=== PATIENT | female | born 1995 | race Caucasian/White ===

== ENCOUNTER 2018-03-15 14:29 | Outpatient (CLI) | payer MEDICAID ==
[2018-03-15 15:40] LABS: APPEARANCE,URINE SLIGHTLY-CLOUDY; BILIRUBIN,URINE NEGATIVE (NEGATIVE); COLOR,URINE YELLOW; GLUCOSE, URINE NEGATIVE (NEGATIVE); KETONES,URINE NEGATIVE (NEGATIVE); LEUKOCYTE ESTERASE,URINE LARGE (NEGATIVE); NITRITE,URINE NEGATIVE (NEGATIVE); PROTEIN,URINE NEGATIVE (NEGATIVE); URINE SPECIFIC GRAVITY 1.011; UROBILINOGEN,URINE NEGATIVE mg/dL (<2.0)
[2018-03-15 15:56] LABS: URINE AMPHETAMINES SCREEN NEGATIVE; URINE BARBITURATES SCREEN NEGATIVE; URINE BENZODIAZEPINES SCREEN NEGATIVE; URINE COCAINE SCREEN NEGATIVE; URINE MARIJUANA (THC) SCREEN NEGATIVE; URINE METHADONE SCREEN NEGATIVE; URINE PHENCYCLIDINE SCREEN NEGATIVE
--- NOTE | 2018-03-15 16:10 | Non Stress Test Report ---
Non Stress Test Datetime Report Generated by CPN: 03/15/2018 16:09 DEMOGRAPHIC EGA NST: 39.1 EGA NST: 39.1 INDICATION Indication for Study: Ordered by Provider Indication for Study: Ordered by Provider MONITORING Monitor Explained: Monitor Explained; Test Explained; Patient Verbalized Understanding Monitor Explained: Monitor Explained; Test Explained; Patient Verbalized Understanding Time on Monitor: 03/15/2018 14:58 Time on Monitor: 03/15/2018 14:58 Time off Monitor: 03/15/2018 15:50 Time off Monitor: 03/15/2018 15:50 NST Duration: 52 NST Duration: 52 NST INTERVENTIONS NST Interventions: PO Hydration; Reposition Patient NST Interventions: PO Hydration; Reposition Patient Physician Notified NST: Quoc Ruelas, CNM BABY A: [id number] BABY A Movement : Present Contraction Frequency : x1 FHR Baseline : 140 Accelerations : 15X15 Decelerations : None Variability : Moderate 6-25bpm NST Review: Meets Criteria for Reactive NST NST Review and Verified By : yris romo, RN NST Results: Reactive NST REPORT Report Trigger: Send Report
== END 2018-03-15 16:02 | disposition home or self-care (01) ==
LOC: LC 14:29
PROVIDERS: ATTEND Obstetrics & Gynecology
PROC: 4A1HXCZ Monitoring of Products of Conception, Cardiac Rate, External Approach (ICD-10-PCS; principal; 2018-03-15)
DX: O47.1 False labor at or after 37 completed weeks of gestation (principal); Z3A.39 39 weeks gestation of pregnancy
CPT/HCPCS: 59025; 80307; 81005

== ENCOUNTER 2018-03-21 12:33 | Outpatient (CLI) | payer MEDICAID ==
[2018-03-21 13:18] LABS: APPEARANCE,URINE SLIGHTLY-CLOUDY; BILIRUBIN,URINE NEGATIVE (NEGATIVE); COLOR,URINE YELLOW; GLUCOSE, URINE NEGATIVE (NEGATIVE); KETONES,URINE NEGATIVE (NEGATIVE); LEUKOCYTE ESTERASE,URINE TRACE (NEGATIVE); NITRITE,URINE NEGATIVE (NEGATIVE); PROTEIN,URINE NEGATIVE (NEGATIVE); URINE SPECIFIC GRAVITY 1.017; UROBILINOGEN,URINE NEGATIVE mg/dL (<2.0)
--- NOTE | 2018-03-21 13:21 | Non Stress Test Report ---
Non Stress Test Datetime Report Generated by CPN: 03/21/2018 13:21 DEMOGRAPHIC EGA NST: 40.0 MONITORING Monitor Explained: Monitor Explained; Test Explained; Patient Verbalized Understanding Time on Monitor: 03/21/2018 12:53 Time off Monitor: 03/21/2018 13:18 NST Duration: 25 NST INTERVENTIONS NST Interventions: PO Hydration Physician Notified NST: Ruelas, CNM BABY A: [id number] BABY A Movement : Present Contraction Frequency : 10 FHR Baseline : 130 Accelerations : 15X15 Decelerations : None Variability : Moderate 6-25bpm NST Review: Meets Criteria for Reactive NST NST Review and Verified By : HAILEYUND, RN NST Results: Reactive NST REPORT Report Trigger: Send Report
[2018-03-21 13:34] LABS: URINE AMPHETAMINES SCREEN NEGATIVE; URINE BARBITURATES SCREEN NEGATIVE; URINE BENZODIAZEPINES SCREEN NEGATIVE; URINE COCAINE SCREEN NEGATIVE; URINE MARIJUANA (THC) SCREEN NEGATIVE; URINE METHADONE SCREEN NEGATIVE; URINE PHENCYCLIDINE SCREEN NEGATIVE
== END 2018-03-21 13:24 | disposition home or self-care (01) ==
LOC: LC 12:33
PROVIDERS: ATTEND Obstetrics & Gynecology
PROC: 4A1HXCZ Monitoring of Products of Conception, Cardiac Rate, External Approach (ICD-10-PCS; principal; 2018-03-21)
DX: O47.1 False labor at or after 37 completed weeks of gestation (principal); Z3A.40 40 weeks gestation of pregnancy
CPT/HCPCS: 59025; 80307; 81005

== ENCOUNTER 2018-03-24 06:30 | Inpatient (IN) | payer MEDICAID ==
[2018-03-24] MEDS ORDERED: OXYTOCIN/NORMAL SALINE 20 UNIT/1,000 ML RTUINJ IV PRN ×2 (06:43→19:30)
[2018-03-24] MEDS ORDERED: RINGERS SOLUTION,LACTATED 300 ML IV ONE (06:43)
[2018-03-24] MEDS ORDERED: RINGERS SOLUTION,LACTATED 1,000 ML IV PRN (06:43)
[2018-03-24] MEDS ORDERED: PENICILLIN G POTASSIUM 5,000,000 UNIT in DEXTROSE 5%-WATER 100 ML IV ONE (06:44)
[2018-03-24 07:21] LABS: ABSOLUTE LYMPHOCYTES (AUTO) 1.4 10^3/uL (0.5-4.7); ABSOLUTE MONOCYTES (AUTO) 0.4 10^3/uL (0.1-1.4); ABSOLUTE NEUT (AUTO) 3.6 10^3/uL (1.7-8.2); BASOPHILS % (AUTO) 0.7 % (0-2); EOSINOPHILS % (AUTO) 0.2 % (0-6); HEMATOCRIT 27.6 % (36.0-47.0); HEMOGLOBIN 9.8 g/dL (12.0-15.5); LYMPHOCYTES % (AUTO) 26.1 % (13-45); MEAN CORPUSCULAR HEMOGLOBIN 28.6 pg (27.0-33.4); MEAN CORPUSCULAR HGB CONC 35.3 g/dL (32.0-36.0); MEAN CORPUSCULAR VOLUME 81 fl (80-97); MONOCYTES % (AUTO) 7.4 % (3-13); PLATELET COUNT 153 10^3/uL (150-450); RED BLOOD COUNT 3.41 10^6/uL (3.72-5.28); RED CELL DISTRIBUTION WIDTH 13.5 % (11.5-14.0); SEGMENTED NEUTROPHILS % (AUTO) 65.6 % (42-78); TOTAL CELLS COUNTED % (AUTO) 100 %; WHITE BLOOD COUNT 5.5 10^3/uL (4.0-10.5)
[2018-03-24 07:26] LABS: APPEARANCE,URINE CLOUDY; BILIRUBIN,URINE NEGATIVE (NEGATIVE); COLOR,URINE YELLOW; GLUCOSE, URINE NEGATIVE (NEGATIVE); KETONES,URINE NEGATIVE (NEGATIVE); LEUKOCYTE ESTERASE,URINE LARGE (NEGATIVE); NITRITE,URINE NEGATIVE (NEGATIVE); PROTEIN,URINE NEGATIVE (NEGATIVE); URINE SPECIFIC GRAVITY 1.015; UROBILINOGEN,URINE NEGATIVE mg/dL (<2.0)
[2018-03-24 07:45] LABS: URINE AMPHETAMINES SCREEN NEGATIVE; URINE BARBITURATES SCREEN NEGATIVE; URINE BENZODIAZEPINES SCREEN NEGATIVE; URINE COCAINE SCREEN NEGATIVE; URINE MARIJUANA (THC) SCREEN NEGATIVE; URINE METHADONE SCREEN NEGATIVE; URINE PHENCYCLIDINE SCREEN NEGATIVE
[2018-03-24] MEDS ORDERED: PENICILLIN G-K 5 MILLION UNIT VIAL ONE ×3 (08:08→18:14)
[2018-03-24] MEDS ORDERED: MISOPROSTOL 0.2 MG TABLET ONE (08:08)
[2018-03-24] MEDS ORDERED: OXYTOCIN/NORMAL SALINE 20 UNIT/1,000 ML RTUINJ ONE (08:08)
[2018-03-24] MEDS ORDERED: LIDOCAINE 1% INJ-PF (10 MG/ML) 30 ML SDV ONE (08:08)
[2018-03-24 08:23] LABS: RUBELLA INTERPRETATION POSITIVE
[2018-03-24 08:57] LABS: CHLAM PCR NOT DETECTED (NOT DETECT); GON PCR NOT DETECTED (NOT DETECT)
[2018-03-24] MEDS ORDERED: DINOPROSTONE 10 MG VAGINAL INSERT.SR ONE (10:48)
--- NOTE | 2018-03-24 11:53 | Admission Physical ---
Datetime Report Generated by CPN: 03/24/2018 11:53 CURRENT ADMISSION Hx Assessment: The History has been Updated Chief Complaint: Scheduled Induction of Labor Indication for Induction: Post Dates Indication for Induction- Other: LAURITA 5.7 Admit Impression : Term, Intrauterine Admit Plan: Admit to Unit; Initiate Labor Induction Protocol ALLERGIES Medication Allergies: No Medication Allergies: orange (03/24/2018) Latex: Unknown Food Allergies: sour cream and oranges Environmental Allergies: n/a OBSTETRICAL HISTORY EDC: 03/21/2018 00:00 : 2 Para: 0 Term: 0 : 0 SAB: 1 IAB: 0 Livin Gestational Diabetes: No Rh Sensitization: No Incompetent Cervix: No MARBELLA: No Infertility: No ART Treatment: No Uterine Anomaly: No IUGR: No Hx Previous C/S: No Macrosomia: No Hx Loss/Stillborn: No PIH: No Hx : No Placenta Previa/Abruption: No Depression/PP Depression: No PTL/PROM: No Post Hemorrhage: No Current Procedures: Ultrasound Obstetrical History Comments: 2016 SAB G2- Current SEE RECORDS Alcohol: No Marijuana : No Cocaine: No Other Illicit Drugs: No Cigarettes: Never Smoker. [id number] MEDICAL HISTORY Diabetes: No Blood Transfusion: No Pulmonary Disease (Asthma, TB): No Breast Disease: No Hypertension: No Hot Patcher Surgery: Yes Heart Disease: No Hosp/Surgery: Yes Autoimmune Disorder: No Anesthetic Complications: No Kidney Disease: No Abnormal Pap Smear: No Neuro/Epilepsy: No Psychiatric Disorders: No Other Medical Diseases: No Hepatitis/Liver Disease: No Significant Family History: No Varicosities/Phlebitis: No Trauma/Violence : No Thyroid Dysfunction: No Medical History Comments: D_C 2017 INFECTIOUS HISTORY Gonorrhea: No Genital Herpes: No Chlamydia: No Tuberculosis: No Syphilis: No Hepatitis: No HIV/AIDS Exposure: No Rash or Viral Illness: No HPV: No PHYSICAL EXAM General: Normal HEENT: Deferred Neurologic: Normal Thyroid: Deferred Heart: Normal Lungs: Normal Breast: Deferred Back: Normal Abdomen: Normal Genitourinary Exam: Normal Extremities: Normal DTRs: Normal Pelvic Type: Adequate Vital Signs: Reviewed; Within Normal Limits MEMBRANES Membranes: Intact FETUS A EGA: 40.3 Monitoring: External US FHR- Baseline: 135 Variability: Moderate 6-25bpm Accelerations: 15X15 Decelerations: None Presentation: Vertex Admit Comment: 23yo into L_D for IOL. Pt. is O neg, GBS positive who transfered in at 37w from [facility]. uncomplicated except for UTI in first trimester. Hx also significant for anemia, molar and underweight (BMI 16). Pt. scheduled for IOL this AM for pitocin induction but reported vaginal exam to Dr. 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 POC discussed with patient and family who agree with plan. Pt. asked questions and verbalized understanding. Denies any concerns. PLANS FOR LABOR AND DELIVERY Labor and Delivery: None Pain Management: Natural; Epidural Feeding Preference: Breast Benefit of Breast Feed Discussed: Yes Circumcision: Yes INFORMED CONSENT Assignment: Art Carmona MD Signature: with User ID: [email or web address] : with User ID: [email or web address]
[2018-03-24] MEDS ORDERED: ONDANSETRON HCL INJ/PF 4 MG/2 ML SDV ONE (13:22)
[2018-03-24] MEDS ORDERED: PROMETHAZINE HCL INJ 25 MG/1 ML VIAL ONE (14:09)
[2018-03-24] MEDS ORDERED: NALBUPHINE HCL INJ 10 MG/1 ML AMPULE ONE (14:09)
[2018-03-24] MEDS ORDERED: NALBUPHINE HCL INJ 10 MG/1 ML AMPULE IV ONE (14:26)
[2018-03-24] MEDS ORDERED: PROMETHAZINE HCL INJ 25 MG/1 ML VIAL IV ONE (14:26)
[2018-03-24] MEDS: PENICILLIN G POTASSIUM 2,500,000 UNIT in DEXTROSE 5%-WATER 50 ML IV SCH ×2 (14:28→18:25)
--- NOTE | 2018-03-24 14:33 | L&D Progress Notes ---
PROGRESS NOTES Datetime Report Generated by CPN: 03/24/2018 14:33 PROGRESS NOTE Impression Other: IUP @ 40w3d Procedures: Sterile Vag Exam Plan: Continue Present Management; Induction; Cervical Ripening Informed Consent Obtained: Vaginal Delivery; Induction of Labor; Risks, Benefits and Alternatives Discussed Vital Signs : Reviewed Vital Signs Comments: elevated bps during contractions and vomiting otherwise wnl Comment: S: reports increased pain, desires pain medication at this time O: VSS, cervix as stated, cervidil still in place A: IUP @ 40w3d- IOL stable progressing P: IV pain meds, consider removal of cervidil and moving on to pitocin depending on contraction pattern in the next hour, pt. asked questions and verbalized understanding. epidural prn VAGINAL EXAM Contractions: 1.5-3.5 LAST VAGINAL EXAM-NURSING Dilitation: 3.0 Dilitation: 1.5 Dilitation: 1.5 Dilitation: 2.0 Effacement: 80 Effacement: 70 Effacement: Thick Station: -1 Station: -2 Station: high MEMBRANES Membranes: Bulging Membranes: Intact FETUS A FHR - Baseline: 120 Monitoring: External US Variability: Moderate 6-25bpm Accelerations: Prolonged Decelerations: None FHR Category: Category I Presentation: Vertex SIGNATURE SIGNATURE: [id number];[id number];13,[id number] SIGNATURE: 13,[id number];[id number] SIGNATURE: ,[id number] SIGNATURE: [id number] Assignment: Art Carmona MD Signature: with User ID: [email or web address] : with User ID: [email or web address]
[2018-03-24] MEDS ORDERED: FENTANYL/BUPIVACAINE/NS/PF 300 MCG/150 ML RTUINJ EPI ONE (17:28)
[2018-03-24] MEDS ORDERED: EPHEDRINE SULFATE INJ 50 MG/1 ML AMPULE ONE (17:28)
[2018-03-24] MEDS ORDERED: FENTANYL CITRATE INJ/PF 100 MCG/2 ML AMPUL ONE (17:28)
[2018-03-24] MEDS ORDERED: PHENYLEPHRINE HCL INJ/PF 10 MG/1 ML SDV ONE (17:28)
[2018-03-24] MEDS ORDERED: BUPIVACAINE HCL 0.5 % INJ/PF 30 ML SDV ONE (17:39)
[2018-03-24] MEDS ORDERED: NA PHOS,M-B/NA PHOS,DI-BA (ADULT) 133 ML ENEMA PR PRN (19:30)
[2018-03-24] MEDS ORDERED: DIBUCAINE 1% OINTMENT 28 GM TP PRN (19:30)
[2018-03-24] MEDS ORDERED: ZOLPIDEM TARTRATE 5 MG TABLET PO PRN (19:30)
[2018-03-24] MEDS ORDERED: BENZOCAINE/MENTHOL AEROSOL SPRAY 56 ML TOP PRN (19:30)
[2018-03-24] MEDS ORDERED: PROMETHAZINE HCL 25 MG SUPP.RECT PR PRN (19:30)
[2018-03-24] MEDS ORDERED: PROMETHAZINE HCL INJ 25 MG/1 ML VIAL IV PRN (19:30)
[2018-03-24] MEDS ORDERED: DIPHENHYDRAMINE HCL 25 MG CAPSULE PO PRN (19:30)
[2018-03-24] MEDS ORDERED: GLYCERIN/WITCH HAZEL LEAF 1 EACH MED..PAD TP PRN (19:30)
[2018-03-24] MEDS ORDERED: MEASLES,MUMPS&RUBELLA VACC/PF 0.5 ML VIAL SUBCUT PRN (19:30)
[2018-03-24] MEDS ORDERED: PSEUDOEPHEDRINE HCL 30 MG TABLET PO PRN (19:30)
[2018-03-24] MEDS ORDERED: ACETAMINOPHEN 325 MG TABLET PO PRN (19:30)
[2018-03-24] MEDS ORDERED: ACETAMINOPHEN WITH CODEINE #3 TABLET PO PRN ×2 (19:30)
[2018-03-24] MEDS ORDERED: MAGNESIUM HYDROXIDE SUSP 30 ML UDCUP PO PRN (19:30)
[2018-03-24] MEDS ORDERED: DIPH/PERTUSS(ACELL)/TETANUS VAC/PF 0.5 ML SYR (>=10YO) IM PRN (19:30)
[2018-03-24] MEDS ORDERED: PROMETHAZINE HCL 25 MG TABLET PO PRN (19:30)
--- NOTE | 2018-03-24 20:46 | Delivery Summary ---
Del Sum A-C Datetime Report Generated by CPN: 03/24/2018 20:45 DELIVERY PERSONNEL DELIVERY PERSONNEL: [id number] Delivery Doctor:: Brea Renae CNM Nurse Criminal Lawyer Certified:: Brea Renae CNM Labor and Delivery Nurse:: Ben Dewitt RNfinish sander Nurse:: ADA Galarza Shell Assembler:: Monserrat Osborn RN Nursery Nurse:: Mary Gibson rn Dean For Student Affairs/COMMAND CENTER OFFICER: Martina Woods, TYPING SECTION CHIEF Additional Personnel: : silence, rei, snp uncw MATERNAL INFORMATION Delivery Anesthesia: Epidural Medications After Delivery: Pitocin Drip 20 Units/1000ml NSS Maternal Complications: None Complication Details: jovan=5.7 Provider Comments: pt with strong urge to push after epidural and found to be anterior lip. Pushed and progressed to c/c/+2 began pushing and quickly delivered a viable baby boy with spontaneous respiratory effort and cry. Baby placed on maternal abdomen, cord allowed to stop pulsating then clamped x2 and cut by FOB (3vc noted, cord blood collected). Placenta delivered spontaneously intact, minimal bleeding and fundus firm at U-1. Vaginal and perineal inspection revealed lacerations as stated, Mother and baby stable and bonding at this time. LABOR SUMMARY EDC: 03/21/2018 00:00 No. Babies in Womb: 1 Attempted: No Labor Anesthesia: Epidural LABOR INFORMATION Reason for Induction: Post Dates Reason for Induction- Other: FLUID VOLUME 5.7 Onset of Labor: 03/24/2018 14:16 Complete Dilatation: 03/24/2018 18:38 Cervical Ripening Agents: Cervidil Oxytocin: Induction Group B Beta Strep: Positive Antibiotics # of Doses: 3 Antibiotics Time of Last Dose: 1824 Name of Antibiotic Given: Penicillin Steroids Given: None Reason Steroids Not Administered: Not Applicable MEMBRANES Membranes Rupture Method: Spontaneous Rupture of Membranes: 03/24/2018 17:07 Length of Rupture (hr): 1.93 Amniotic Fluid Color: Clear Amniotic Fluid Amount: Small Amniotic Fluid Odor: None STAGES OF LABOR Stage 1 hr: 4 Stage 1 min: 22 Stage 2 hr: 0 Stage 2 min: 25 Stage 3 hr: 0 Stage 3 min: 6 Total Time in Labor hr: 4 Total Time in Labor min: 53 VAGINAL DELIVERY Episiotomy: None Laceration #1: None Laceration Extension #1: N/A Other Laceration: bilateral labial abrasions left periclitoral abrasion-both hemostatic no repair needed Laceration Repair: No Laceration Repair Note: n/a Sponge Count Correct: N/A Sharps Count Correct: N/A CSECTION DELIVERY Primary Indication: N/A Secondary Indication: N/A CSection Incision: N/A BABY A INFORMATION Delivery Date/Time: 03/24/2018 19:03 Method of Delivery: Vaginal Born in Route : No : N/A Forceps: N/A Vacuum Extraction: N/A Shoulder Dystocia : No PRESENTATION/POSITION BABY A Presentation: Cephalic Cephalic Presentation: Vertex Vertex Position: Left Occipital Anterior to OA Breech Presentation: N/A PLACENTA INFORMATION BABY A Placenta Delivery Time : 03/24/2018 19:09 Placenta Method of Delivery: Spontaneous Placenta Status: Delivered SCORES BABY A Heart Rate 1 min: >100 bpm Resp Effort 1 min: Good Cry Reflex Irritability 1 min: Cough or Sneeze or Pulls Away Muscle Tone 1 min: Active Motion Color 1 min: Body [place], Extremities Blue Resuscitation Effort 1 min: Tactile Stimulation SCORE 1 MIN: 9 Heart Rate 5 min: >100 bpm Resp Effort 5 min: Good Cry Reflex Irritability 5 min: Cough or Sneeze or Pulls Away Muscle Tone 5 min: Active Motion Color 5 min: Body [place], Extremities Blue Resuscitation Effort 5 min: Tactile Stimulation SCORE 5 MIN: 9 INFORMATION BABY A Gestational Age at Delivery: 40.3 Gestational Status: Full Term- 39- 40.6 Weeks Outcome : Liveborn Infant Condition : Stable Infant Sex: Male IDENTIFICATION BABY A Infant Verification Date/Time: 03/24/2018 19:56 ID Band Number: [id number] Mother's Name Verified: Yes RN Verifying : rn iliff Additional Verifying Personnel: [facility] WEIGHT/LENGTH BABY A Infant Birthweight (gm): 3300 Infant Weight (lb): 7 Weight (oz): 4 Infant Length (in): 20.50 Length (cm): 52.07 CORD INFORMATION BABY A No. Cord Vessels: 3 Nuchal Cord : N/A Cord Blood Taken: Yes-For Eval (Mom's Blood Type - or O+) Suction: None ASSESSMENT BABY A Complications: None Physical Findings at Delivery: Molding of the Head Respirations: Appears Normal Skin to Skin: Yes Skin to Skin Time (min): 75 Fund Controller/ALS Called : No Care By: Ann-Marie Gibson RN Transferred To: Remains with Mother BABY B INFORMATION : N/A SIGNATURES Assignment: Art Carmona MD Signature: with User ID: [email or web address] : with User ID: [email or web address]
[2018-03-24] MEDS ORDERED: IBUPROFEN 800 MG TABLET ONE (21:37)
[2018-03-24] MEDS: IBUPROFEN 800 MG TABLET PO SCH (22:00)
[2018-03-24] MEDS: FAMOTIDINE 20 MG TABLET PO SCH (22:41)
[2018-03-25] MEDS: IBUPROFEN 800 MG TABLET PO SCH ×3 (00:08→22:08)
[2018-03-25] MEDS: PENICILLIN G POTASSIUM 2,500,000 UNIT in DEXTROSE 5%-WATER 50 ML IV SCH ×2 (06:30→10:26)
[2018-03-25 06:38] LABS: HEPATITIS C VIRUS AB <0.1 s/co ratio (0.0-0.9)
[2018-03-25 08:08] LABS: HEMATOCRIT 24.2 % (36.0-47.0); HEMOGLOBIN 8.5 g/dL (12.0-15.5); MEAN CORPUSCULAR HEMOGLOBIN 28.2 pg (27.0-33.4); MEAN CORPUSCULAR HGB CONC 34.9 g/dL (32.0-36.0); MEAN CORPUSCULAR VOLUME 81 fl (80-97); PLATELET COUNT 141 10^3/uL (150-450); RED BLOOD COUNT 2.99 10^6/uL (3.72-5.28); RED CELL DISTRIBUTION WIDTH 13.4 % (11.5-14.0); WHITE BLOOD COUNT 8.6 10^3/uL (4.0-10.5)
[2018-03-25 09:38] LABS: HEPATITS B SURFACE ANTIGEN Negative (Negative)
[2018-03-25] MEDS: FAMOTIDINE 20 MG TABLET PO SCH ×2 (10:27→22:08)
[2018-03-25] MEDS: DOCUSATE SODIUM 100 MG CAPSULE PO SCH ×2 (10:27→17:41)
[2018-03-25] MEDS: SENNOSIDES/DOCUSATE 8.6-50 MG 1 EACH TABLET PO SCH (10:27)
[2018-03-25] MEDS: FERROUS SULFATE 325 MG TABLET PO SCH ×2 (10:27→17:41)
[2018-03-25] MEDS: PRENATAL VITAMIN W DHA CAPSULE PO SCH (10:27)
--- NOTE | 2018-03-25 12:00 | PDOC PROGRESS REPORT ---
Subjective-OB Progress Note for:: 03/25/18 Subjective: Pt doing well, no concerns. She reports light bleeding, reg diet and voiding without difficulty. Physical Exam (OB) Vital Signs: Temp Pulse Resp BP Pulse Ox 98.2 F 88 18 110/76 100 03/25/18 05:00 03/25/18 05:00 03/25/18 05:00 03/25/18 05:00 03/25/18 05:00 Intake & Output 03/24/18 03/25/18 03/26/18 06:59 06:59 06:59 Intake Total 50 Balance 50 Weight 53 kg - Abdomen Description: Soft Hernia Present: No Fundal Description: Firm, Midline Fundal Height: u/u - u/2 Objective-Diagnostic Laboratory: 03/25/18 07:27 03/25/18 07:27 WBC 8.6 RBC 2.99 L Hgb 8.5 L Hct 24.2 L MCV 81 MCH 28.2 MCHC 34.9 RDW 13.4 Plt Count 141 L Assessment and Plan(PN) - Assessment and Plan (1) Delivery normal Is this a current diagnosis for this admission?: Yes (2) Positive GBS test Is this a current diagnosis for this admission?: Yes - Time Spent with Patient Time with patient: Less than 15 minutes Medications reviewed and adjusted accordingly: Yes - Disposition Anticipated Discharge: Home Within: within 24 hours
[2018-03-26] MEDS: IBUPROFEN 800 MG TABLET PO SCH (05:39)
[2018-03-26] MEDS: PENICILLIN G POTASSIUM 2,500,000 UNIT in DEXTROSE 5%-WATER 50 ML IV SCH (08:03)
[2018-03-26 08:45] VITALS: BP 111/72
[2018-03-26] MEDS: FERROUS SULFATE 325 MG TABLET PO SCH (10:13)
[2018-03-26] MEDS: DOCUSATE SODIUM 100 MG CAPSULE PO SCH (10:13)
[2018-03-26] MEDS: SENNOSIDES/DOCUSATE 8.6-50 MG 1 EACH TABLET PO SCH (10:13)
[2018-03-26] MEDS: FAMOTIDINE 20 MG TABLET PO SCH (10:13)
[2018-03-26] MEDS: PRENATAL VITAMIN W DHA CAPSULE PO SCH (10:13)
--- NOTE | 2018-03-26 11:22 | PDOC DISCHARGE SUMMARY ---
Final Diagnosis Discharge Date: 03/26/18 - Final Diagnosis (1) Delivery normal Is this a current diagnosis for this admission?: Yes (2) Positive GBS test Is this a current diagnosis for this admission?: Yes Discharge Data - Discharge Medication Home Medications: Vit No.130/Iron/Folic [ Vitamins] 1 each PO DAILY 03/15/18 Reason(s) for Admission: Induction of Labor, Group B Strep Positive Procedures: NST Intrapartum Procedure(s): Spontaneous Vaginal Delivery Complication(s): Laceration-Labial, Laceration-Periurethral Laceration-Degree: 1st - Diagnosis Test Laboratory: Temp Pulse Resp BP Pulse Ox 98.2 F 88 18 110/76 100 03/25/18 05:00 03/25/18 05:00 03/25/18 05:00 03/25/18 05:00 03/25/18 05:00 03/24/18 03/24/18 03/25/18 06:40 07:01 07:27 RBC 3.41 L 2.99 L Hgb 9.8 L 8.5 L Hct 27.6 L 24.2 L Urine Opiates Screen NEGATIVE - Discharge information/Instructions Discharge Activity: Balance Activity w/Rest, Pelvic Rest Discharge Diet: Regular Disposition: HOME, SELF-CARE Follow up with: [facility] in: 4
== END 2018-03-26 13:50 | disposition home or self-care (01) | DRG 807 ==
LOC: LR 06:30 → 2S 19:49
PROVIDERS: ADMIT Obstetrics & Gynecology; ATTEND Obstetrics & Gynecology
PROC: 10E0XZZ Delivery of Products of Conception, External Approach (ICD-10-PCS; principal; 2018-03-24)
PROC: 4A1HXCZ Monitoring of Products of Conception, Cardiac Rate, External Approach (ICD-10-PCS; 2018-03-24)
PROC: 3E0P7VZ Introduction of Hormone into Female Reproductive, Via Natural or Artificial Opening (ICD-10-PCS; 2018-03-24)
PROC: 3E0234Z Introduction of Serum, Toxoid and Vaccine into Muscle, Percutaneous Approach (ICD-10-PCS; 2018-03-26)
DX: O48.0 Post-term pregnancy (principal); Z37.0 Single live birth; O71.82 Other specified trauma to perineum and vulva; O99.824 Streptococcus B carrier state complicating childbirth; O36.5930 Maternal care for other known or suspected poor fetal growth, third trimester, not applicable or unspecified; O99.02 Anemia complicating childbirth; D64.9 Anemia, unspecified; O70.0 First degree perineal laceration during delivery; Z3A.40 40 weeks gestation of pregnancy; Z91.018 Allergy to other foods; Z23 Encounter for immunization
CPT/HCPCS: 36415; 59025; 80307; 81005; 85025; 85027; 86592; 86701; 86762; 86803; 86804; 86850; 86870; 86900; 86901; 87340; 87491; 87591; 88307; 90715; J2300; J2370; J2405; J2540; J2550; J2590; J3010; J3490